=== PATIENT | male | born 1970 | race Caucasian/White ===

== ENCOUNTER 2020-11-18 16:37 | Emergency (ER) | payer MEDICAID ==
[~2020-11-18] VITALS: Ht 175.3 cm; Wt 86.4 kg
[~2020-11-18 16:37] MED LIST: DOCU-28 PO; HYDR-4383 PO; LACT1CAP65 PO; LOP25T PO
[2020-11-18 17:13] VITALS: BP 139/92
[2020-11-18] MEDS ORDERED: LIDOcaine 1% 30ml preserv. free vial IJ ONE (17:45)
[2020-11-18] MEDS ORDERED: bacitracin 15gm ointment TP ONE (19:40)
[2020-11-18] MEDS ORDERED: CEPH-585 PO (19:49)
== END 2020-11-18 19:58 | disposition home or self-care (01) ==
LOC: ER 16:38
DX: S61.012A Laceration without foreign body of left thumb without damage to nail, initial encounter (principal); F17.210 Nicotine dependence, cigarettes, uncomplicated; I10 Essential (primary) hypertension; G89.29 Other chronic pain; Z95.5 Presence of coronary angioplasty implant and graft; Z79.899 Other long term (current) drug therapy; Z72.89 Other problems related to lifestyle; Z79.2 Long term (current) use of antibiotics; W26.0XXA Contact with knife, initial encounter; Y93.G3 Activity, cooking and baking; Y92.89 Other specified places as the place of occurrence of the external cause; Y99.8 Other external cause status
CPT/HCPCS: 12001; 73140; 99283

== ENCOUNTER 2020-12-02 11:39 | Emergency (ER) | payer MEDICAID ==
[~2020-12-02] VITALS: Ht 175.3 cm; Wt 86.4 kg
[~2020-12-02 11:39] MED LIST changes: +CEPH-585 PO
[2020-12-02 11:50] VITALS: BP 144/91
[2020-12-02] MEDS ORDERED: triamcinolone acetonide 40mg/ml inj IM ONE (13:10)
[2020-12-02] MEDS ORDERED: PRED20TA PO (13:10)
[2020-12-02] MEDS ORDERED: diphenhydrAMINE 50 mg/ml inj IM ONE (13:15)
== END 2020-12-02 13:53 | disposition home or self-care (01) ==
LOC: ER 11:39
DX: S60.562A Insect bite (nonvenomous) of left hand, initial encounter (principal); I10 Essential (primary) hypertension; G89.29 Other chronic pain; Z98.890 Other specified postprocedural states; Z72.89 Other problems related to lifestyle; Z79.2 Long term (current) use of antibiotics; Z79.899 Other long term (current) drug therapy; W57.XXXA Bitten or stung by nonvenomous insect and other nonvenomous arthropods, initial encounter; Y93.89 Activity, other specified; Y92.89 Other specified places as the place of occurrence of the external cause; Y99.8 Other external cause status
CPT/HCPCS: 96372; 99284; J1200; J3301

== ENCOUNTER 2022-03-02 20:16 | Emergency (ER) | payer MEDICAID ==
[~2022-03-02] VITALS: Ht 175.3 cm; Wt 77.0 kg
[~2022-03-02 20:16] MED LIST changes: -CEPH-585 PO
[2022-03-02 20:38] VITALS: BP 150/106
[2022-03-02] MEDS ORDERED: IBUP-1986 PO (21:41)
[2022-03-02] MEDS ORDERED: ibuprofen tablet 400 MG TABLET PO ONE (21:45)
== END 2022-03-02 22:00 | disposition home or self-care (01) ==
LOC: ER 20:17
DX: M25.512 Pain in left shoulder (principal); G89.29 Other chronic pain; M54.9 Dorsalgia, unspecified; I10 Essential (primary) hypertension; Z79.899 Other long term (current) drug therapy
CPT/HCPCS: 73030; 93005; 99283

== ENCOUNTER 2023-08-05 02:02 | Emergency (ER) | payer MEDICAID ==
[~2023-08-05] VITALS: Ht 175.3 cm; Wt 93.8 kg
[~2023-08-05 02:02] MED LIST changes: +IBUP-1986 PO
[2023-08-05 02:14] VITALS: BP 124/86; PULSE 88; RESP 16; TEMP 98.3; O2SAT 95
[2023-08-05] MEDS ORDERED: CEPH-585 PO (02:24)
[2023-08-05] MEDS ORDERED: SULF1TAB49 PO (02:24)
== END 2023-08-05 02:35 | disposition home or self-care (01) ==
LOC: ER 02:03
DX: L03.113 Cellulitis of right upper limb (principal); I10 Essential (primary) hypertension; Z79.2 Long term (current) use of antibiotics; Z79.1 Long term (current) use of non-steroidal anti-inflammatories (NSAID); Z79.899 Other long term (current) drug therapy
CPT/HCPCS: 99284

== ENCOUNTER 2025-02-01 14:31 | Outpatient (CLI) | payer MEDICAID ==
--- NOTE | 2025-02-01 15:53 | RADIOLOGY REPORT ---
EXAM: MR MRI UPPER EXTREMITY RIGHT INDICATION: H SYMPTOMS AND SIGNS INVOLVING THE MUSCULOSKELET TECHNIQUE: Multiplanar, multisequence MR images of the right shoulder were obtained in the absence of gadolinium contrast material. COMPARISON: None FINDINGS: [CORACOACROMIAL ARCH]: Mild degenerative change of the acromioclavicular joint. Intact coracoclavicul ar ligaments. Intact coracoacromial ligaments. Trace amount of subacromial/subdeltoid bursal distenti on. [ROTATOR CUFF]: Full-thickness horizontally oriented distal insertional supraspinatus tendon tear of the greater tuberosity footprint. Extension to the anterior leading edge. Mild tendinosis of the sub scapularis tendon. [BICEPS TENDON]: Small amount of fluid along the long head of the biceps tendon. [LABRUM]: Intact. [CARTILAGE]: No measurable cartilage defect. [GLENOHUMERAL JOINT]: No joint effusion. No intra-articular body. slight thickening along the axillar y pouch. [BONES]: No acute fracture, osseous contusion, or aggressive focal osseous lesion. [MUSCLES]: Feathery muscle edema along the distal aspect of the infraspinatus. No rotator cuff muscl e atrophy. [NEUROVASCULAR/LYMPH NODES]: Normal. [OTHER]: None. IMPRESSION: 1. Full-thickness horizontally oriented distal insertional supraspinatus tendon tear of the greater t uberosity footprint. Extension to the anterior leading edge. Mild tendinosis of the subscapularis te ndon. 2. Feathery muscle edema along the distal aspect of the infraspinatus 3. Small amount of subacromial/subdeltoid bursal distention. Small amount of fluid along the long hea d of the biceps tendon. Correlate for tenosynovitis
== END 2025-02-01 23:59 | disposition home or self-care (01) ==
LOC: MRI02 14:31
PROVIDERS: ATTEND Family Medicine
DX: M19.011 Primary osteoarthritis, right shoulder (principal); R29.898 Other symptoms and signs involving the musculoskeletal system; R60.0 Localized edema; M75.121 Complete rotator cuff tear or rupture of right shoulder, not specified as traumatic
CPT/HCPCS: 73221